=== PATIENT | female | born 1960 | race Hispanic/Latino ===

== ENCOUNTER → 2020-09-14 | Outpatient (CLI) | payer BC ==
[~2020-09-14] MED LIST: ACET-2743 PO; ALBU8.5H8 IH; APIX2.5T PO; CHOL500050 PO; CITA-107 PO; FEXO180T94 PO; FURO40TA5 PO; HYDR-4457 PO; LOSA100T58 PO; METF-526 PO; POTA10TA14 PO; SIMV10TA97 PO
== END | disposition home or self-care (01) ==
LOC: RAH 13:20
PROVIDERS: ATTEND Family Medicine
DX: R60.0 Localized edema (principal)
CPT/HCPCS: 93971

== ENCOUNTER → 2023-05-11 | Outpatient (CLI) | payer MEDICARE ==
[~2023-05-11] MED LIST changes: -LOSA100T58 PO; +LOSA100T59 PO
== END | disposition home or self-care (01) ==
LOC: SHCH 09:36
PROVIDERS: ATTEND Internal Medicine Cardiovascular Disease
DX: I73.9 Peripheral vascular disease, unspecified (principal); I87.2 Venous insufficiency (chronic) (peripheral)
CPT/HCPCS: 93925; 93970

== ENCOUNTER → 2023-07-20 | Outpatient (CLI) | payer MEDICARE | END | disposition home or self-care (01) | LOC: SHCH 09:57 | PROVIDERS: ATTEND Internal Medicine Cardiovascular Disease | DX: I35.8 Other nonrheumatic aortic valve disorders (principal); I51.89 Other ill-defined heart diseases; I35.0 Nonrheumatic aortic (valve) stenosis | CPT/HCPCS: 93306 ==

== ENCOUNTER → 2023-08-02 | Outpatient (CLI) | payer MEDICARE | END | disposition home or self-care (01) | LOC: RAH 07:38 | PROVIDERS: ATTEND Family Medicine | DX: M79.604 Pain in right leg (principal); W19.XXXD Unspecified fall, subsequent encounter | CPT/HCPCS: 93971 ==

== ENCOUNTER → 2024-05-14 | Outpatient (CLI) | payer MEDICARE ==
[~2024-05-14] MED LIST changes: -ACET-2743 PO; +ACET-66 PO; +AEC81 PO; +ALEN70TA80 PO; -APIX2.5T PO; +FLUT16H NASAL; +FLUT1BLS3 IH; +FURO20TA4 PO; -FURO40TA5 PO; -HYDR-4457 PO; -METF-526 PO; +MULT1CAP57 PO; +OMEP20TA20 PO; -POTA10TA14 PO
--- NOTE | 2024-05-16 08:19 | HMCSR ---
APPROVED REPORT Bilateral Lower Extremity Venous Study for Venous Competence., DVT. Indications i87.1, i87.2 Vein Imaging CFV (R): Normal flow, augmentation and compression. No evidence of DVT. 10.0mm 650ms of reflux. SFJ (R): Normal flow, augmentation and compression. No evidence of DVT. FEM (R): Normal flow, augmentation and compression. No evidence of DVT. POP (R): Normal flow, augmentation and compression. No evidence of DVT. DFV (R): Normal flow, augmentation and compression. No evidence of DVT. PTV (R): Normal flow, augmentation and compression. No evidence of DVT. Peroneals (R): Normal flow, augmentation and compression. No evidence of DVT. CFV (L): Normal flow, augmentation and compression. No evidence of DVT. 5.8mm 1089ms of reflux. SFJ (L): Normal flow, augmentation and compression. No evidence of DVT. FEM (L): Normal flow, augmentation and compression. No evidence of DVT. POP (L): Normal flow, augmentation and compression. No evidence of DVT. DFV (L): Normal flow, augmentation and compression. No evidence of DVT. PTV (L): Normal flow, augmentation and compression. No evidence of DVT. Peroneals (L): Normal flow, augmentation and compression. No evidence of DVT. Technologist Impression Deep veins of bilateral lower extremities appear patent and compressible without thrombus. LCFV venous reflux seen Superficial venous insufficiency seen in RGSV & LGSV RGSV Junction 5.6mm 550ms thigh 3.2mm 0.0ms (Tortuous) knee 3.0mm 2328ms (Tortuous) calf 2.4mm 0.0ms RSSV Prox 3.0mm 0.0ms Mid 2.5mm 0.0ms LGSV junction 7.5mm 0.0ms thigh 4.5mm 383ms (tortuous) knee 3.0mm 0.0ms (tortuous) calf 2.5mm 1456ms (tortuous) LSSV Prox 3.1mm 344ms Mid 3.1mm 0.0ms Technically difficult study Conclusion Severe deep venous reflux noted of left common femoral vein Severe superficial reflux in her bilateral greater saphenous veins and significantly tortuous vessels which may be indicative of prior ablative procedures performed Consider formal venography with IVUS if clinically indicated Conclusion Severe deep venous reflux noted of left common femoral vein Severe superficial reflux in her bilateral greater saphenous veins and significantly tortuous vessels which may be indicative of prior ablative procedures performed Consider formal venography with IVUS if clinically indicated
== END | disposition home or self-care (01) ==
LOC: SHCH 13:20
PROVIDERS: ATTEND Internal Medicine Cardiovascular Disease
DX: I87.2 Venous insufficiency (chronic) (peripheral) (principal); I87.1 Compression of vein
CPT/HCPCS: 93970

== ENCOUNTER 2025-03-15 17:03 | Emergency (ER) | payer MEDICARE ==
[~2025-03-15] VITALS: Ht 147.3 cm; Wt 95.7 kg
[2025-03-15 17:50] LABS: IMMATURE GRANULOCYTE ABSOLUTE 0.03 K/uL (0-1); NUCLEATED RED BLOOD CELLS 0.0 % (0.0-0.19); PLATELET COUNT (AUTO) 181 K/uL (130-400); RED BLOOD CELL COUNT(AUTO) 4.55 MIL/uL (4.00-5.50); RED CELL DISTRIBUTION WIDTH 12.5 % (11.0-15.5); WHITE BLOOD COUNT (AUTO) 9.3 K/uL (4.8-10.8)
[2025-03-15 18:02] LABS: CREATININE 0.7 mg/dL (0.5-1.0); GLOMERULAR FILTR. RATE CALC 95.0 mL/min (>90); GLUCOSE,RANDOM 121.0 mg/dL (70-105); SODIUM SERUM 142.0 mmol/L (136-145); UREA NITROGEN, BLOOD 22.0 mg/dL (7-18)
[2025-03-15 18:06] LABS: ASPARTATE AMINOTRANSFERASE 19.0 U/L (10-37); CREATINE KINASE, TOTAL 39.0 U/L (21-232); TOTAL PROTEIN, SERUM 7.5 g/dL (6.0-8.3)
[2025-03-15] MEDS: 0.9%NACL 1000ML 1,000 ML IV ONE (18:10)
[2025-03-15] MEDS ORDERED: IOHEXOL-350 75 ML VIAL IV ONE (18:51)
[2025-03-15 19:36] LABS: ADD UA MICROSCOPIC NO; APPEARANCE,URINE CLEAR (CLEAR); GLUCOSE, URINE (UA) NEGATIVE (NEGATIVE); LEUKOCYTE ESTERASE ,URINE NEGATIVE Leu/uL (NEGATIVE); NITRATE,URINE NEGATIVE (NEGATIVE); OCCULT BLOOD,URINE NEGATIVE (NEGATIVE)
--- NOTE | 2025-03-15 19:55 | HMCIMG ---
EXAM: CT Abdomen and Pelvis with IV contrast CLINICAL HISTORY: Patient presents with upper abdominal pain. TECHNIQUE: Axial computed tomography images of the abdomen and pelvis with intravenous contrast. CONTRAST: Omnipaque 350. COMPARISON: None provided. FINDINGS: LUNG BASES: The lung bases appear clear. No pleural effusions are seen. LIVER: Unremarkable. GALLBLADDER AND BILE DUCTS: The gallbladder appears within normal limits. No radioopaque gallstones are seen. No biliary ductal dilatation is evident. PANCREAS: Unremarkable. SPLEEN: Unremarkable. ADRENAL GLANDS: Unremarkable. KIDNEYS, URETERS, AND BLADDER: The kidneys appear within normal limits. There is no hydronephrosis or hydroureter. No urinary calculi are seen. STOMACH AND BOWEL: Mild constipation changes. No evidence of bowel obstruction. No evidence suggesting enteritis or colitis. APPENDIX: No evidence of acute appendicitis on CT examination. PERITONEUM: No free fluid. No free air. LYMPH NODES: No lymphadenopathy is evident. REPRODUCTIVE: The uterus is surgically absent. Unremarkable as visualised otherwise. VASCULATURE: No evidence of abdominal aortic aneurysm. BONES: Multilevel mild degenerative changes of the spine. No aggressive appearing osseous lesion. No acute osseous pathology is evident. ABDOMINAL WALL: Umbilical hernia with herniation of omental fat and ileal bowel loops. The hernial defect measures approximately 3.8 cm in maximum transverse dimension and 3 cm in maximum craniocaudal dimension. A focal fluid-filled prominence of the ileal bowel loops in the hernial sac measures a maximum calibre of 2 cm. Patchy fat stranding is seen within the neck of the hernial sac. IMPRESSION: Umbilical hernia containing omental fat and ileal bowel loops with focal fluid-filled prominence and patchy fat stranding in the hernial sac, without features of bowel obstruction. Mild constipation. Surgical absence of the uterus. /[place]
--- NOTE | 2025-03-15 20:27 | ERN ---
ED Note History of Present Illness Stated Complaint: ABD PAIN Chief Complaint: Abdominal Pain Time Seen by MD: 17:09 Time Seen by Midlevel: 17:09 Dictation: The patient is a 65-year-old female with a history of ventral hernia repair, appendectomy, gastric sleeve a year ago, hypertension who presents to the emergency department with complaints of epigastric abdominal pain, nausea and nonbloody vomiting, generalized weakness onset 2 hours prior to arrival. 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 Patient denies any headache. Reports some dizziness. Denies any fevers, denies any diarrhea, denies any constipation. Allergies: Coded Allergies: No Known Drug Allergies (Unverified Allergy, Unknown, 10/31/16) Home Meds Reported Medications Fluticasone/Umeclidin/Vilanter (Trelegy Ellipta 100-62.5-25) 100-62.5 Blst.w.dev, 1 EACH IH DAILY 12/25/23 Fexofenadine HCl (Mariaa Allergy) 180 Mg Tablet, 180 MG PO DAILY, TAB 12/25/23 Fluticasone Propionate (Flonase Nasal [place]) 50 Mcg/Actuation [place], 1 SPRAY NASAL DAILY, SPRAY 12/25/23 Acetaminophen (Tylenol) 500 Mg Tab, 500 MG PO AD PRN for PAIN, TAB 12/25/23 Aspirin (ASPIRIN 81 MG ECTAB) 81 Mg Ectab, 81 MG PO DAILY, TAB.EC 12/25/23 Omeprazole (Omeprazole) 20 Mg Tablet.dr, 20 MG PO DAILY, TAB 12/25/23 Alendronate Sodium (Alendronate Sodium) 70 Mg Tablet, 70 MG PO QWEEK, TAB 12/25/23 Furosemide (Furosemide) 20 Mg Tablet, 20 MG PO DAILY, TAB 12/25/23 Multivit-Min/Iron/Folic Acid/K (Bariatric Mv-Iron 45 mg Cap) 45 Mg Iron-800 Mcg-120 Mcg Capsule, 1 EACH PO DAILY, CAP 12/25/23 Citalopram Hydrobromide (Citalopram HBr) 20 Mg Tablet, 20 MG PO HS, TAB 09/14/17 Losartan Potassium (Losartan Potassium) 100 Mg Tablet, 100 MG PO AM, TAB 09/14/17 Albuterol Sulfate (Proair Hfa) 8.5 Gm Hfa.aer.ad, 1 PUFF IH Q4HPRN PRN for SHORTNESS OF BREATH/WHEEZING 11/01/16 Cholecalciferol (Vitamin D3) (Vitamin D3) 50,000 Unit Capsule, 66468 UNIT PO QWEEK, CAP 07/16/15 Simvastatin (Simvastatin) 10 Mg Tablet, 10 MG PO HS, TAB 07/16/15 Past Medical History Past Medical History: Constipation, COPD, Depression, GERD, High Cholesterol, Heart Disease, Hypertension Surgical History: Appendectomy, Hysterectomy, Tonsillectomy Surgical History Other: GASTRIC SLEEVE RN Note Reviewed/Agreed w/PFSH: Yes Review of System Dictation Constitutional: Negative for fever,chills, and weight loss Eyes: Negative for injury, pain,redness, and discharge ENT: Negative for injury,pain or swelling Cardiovascular: Negative for chest pain, palpitations, and edema Respiratory: Negative for shortness of breath, cough, and wheezing, Abdomen/GI: Negative for diarrhea, and constipation positive for abdominal pain, nausea, vomiting Back: Negative for injury and pain : Negative for injury, bleeding and discharge MS/Extremity: Negative for injury and deformity Skin: Negative for rash, and discoloration Neuro: Negative for headache, numbness, tingling, and seizure positive for weakness Psych: Negative for suicide ideation, homicidal ideation, and hallucinations Initial Vital Sign VS Vital Signs Date Time Temp Pulse Resp B/P (MAP) Pulse Ox O2 Delivery O2 Flow Rate FiO2 03/15/25 17:05 97.7 58 16 214/79 99 Room Air 0 03/15/25 17:55 21 Physical Exam Dictation Vital Signs reviewed General Appearance: Alert, oriented x 3, no acute distress, well developed, nourished. Head and Face: non-traumatic. Eyes: PERRL, pink conjunctivas, eyelid no trauma, anterior chamber with arcus senilis. Ears: Pinnas intact and no signs of trauma or erythema ear canals clear and no discharge TM no erythema Nose: No discharge, no bleeding. Oropharynx: Mouth normal, tongue pink. pharynx clear,no erythema, tonsils no exudates, no abscesses noted, mucous membrane moist Neck: Supple, non-tender, no thyromegaly, no masses, no JVD, no bruits Breast:Deferred Chest:No tenderness, no crepitus, no paradoxical movement, no retractions Lungs:Clear, well-ventilated, symmetric, no rales, no wheezing, no rhonchi, no stridor, good breath sounds bilaterally Heart: Regular rate, regular rhythm, no murmur, no gallops Vascular: no peripheral edema, Abdomen: Soft, positive bowel sounds, nondistended, no guarding, Epigastric tenderness, no rebound, no masses no hepatomegaly, no splenomegaly, no Boyd's sign, no hernias. Rectal: Deferred Genital: Deferred Neurological: Normal speech, motor function intact, sensory function intact , upper extremities equal in strength, lower extremities equal in strength, no facial droop, no slurred speech Musculoskeletal: Neck nontender, full range of motion, back nontender, full range of motion, Extremities: nontender, full range of motion Skin: Color pink, dry, no turgor, no rash, no lacerations, no abrasions, no contusions. Lymphatic: Deferred Results (Laboratory/Radiology) Laboratory/Radiology Laboratory Tests Test 03/15/25 17:38 03/15/25 19:26 White Blood Count 9.3 K/uL (4.8-10.8) Red Blood Count 4.55 MIL/uL (4.00-5.50) Hemoglobin 13.9 g/dL (12.0-16.0) Hematocrit 43.0 % (36-48) Mean Corpuscular Volume 94.5 fL (79-99) Mean Corpuscular Hemoglobin 30.5 pg (27.0-33.0) Mean Corpuscular Hemoglobin Concent 32.3 g/dL (32.0-36.0) Red Cell Distribution Width 12.5 % (11.0-15.5) Platelet Count 181 K/uL (130-400) Mean Platelet Volume 10.3 fL (7.5-10.5) Immature Granulocyte % (Auto) 0.3 % (0-1) Neutrophils (%) (Auto) 73.0 % (40.0-77.0) Lymphocytes (%) (Auto) 19.6 % (21.0-51.0) L Monocytes (%) (Auto) 5.3 % (3.0-13.0) Eosinophils (%) (Auto) 1.4 % (0.0-8.0) Basophils (%) (Auto) 0.4 % (0.0-5.0) Neutrophils # (Auto) 6.8 K/uL (1.8-7.7) Lymphocytes # (Auto) 1.8 K/uL (1.0-4.8) Monocytes # (Auto) 0.5 K/uL (0.1-1.0) Eosinophils # (Auto) 0.13 K/uL (0.00-0.70) Basophils # (Auto) 0.04 K/uL (0.00-0.20) Absolute Immature Granulocyte (auto 0.03 K/uL (0-1) Nucleated Red Blood Cells 0.0 % (0.0-0.19) Sodium Level 142 mmol/L (136-145) Potassium Level 4.0 mmol/L (3.5-5.1) Chloride Level 104 mmol/L (101-111) Carbon Dioxide Level 30 mmol/L (21-32) Blood Urea Nitrogen 22 mg/dL (7-18) H Creatinine 0.7 mg/dL (0.5-1.0) Glomerular Filtration Rate Calc 95 mL/min (>90) Random Glucose 121 mg/dL (70-105) H Total Calcium 8.9 mg/dL (8.5-10.1) Total Bilirubin 0.6 mg/dL (0.2-1.0) Direct Bilirubin 0.2 mg/dL (0.0-0.3) Aspartate Amino Transf (AST/SGOT) 19 U/L (10-37) Alanine Aminotransferase (ALT/SGPT) 23 U/L (12-78) Alkaline Phosphatase 78 U/L (50-136) Total Creatine Kinase 39 U/L (21-232) Troponin I High Sensitivity 6 ng/L (4-50) Total Protein 7.5 g/dL (6.0-8.3) Albumin 3.9 g/dL (3.5-5.0) Lipase 35 U/L (16-77) Urine Color YELLOW (YELLOW) Urine Appearance CLEAR (CLEAR) Urine pH 7.0 (5.0-8.0) Urine Specific Mallory 1.029 (1.001-1.031) Urine Protein NEGATIVE mg/dL (NEGATIVE) Urine Glucose (UA) NEGATIVE mg/dL (NEGATIVE) Urine Ketones 40 mg/dL (NEGATIVE) H Urine Occult Blood NEGATIVE (NEGATIVE) Urine Nitrate NEGATIVE (NEGATIVE) Urine Bilirubin NEGATIVE mg/dL (NEGATIVE) Urine Urobilinogen 0.2 mg/dL (0.2-1.0) Urine Leukocyte Esterase NEGATIVE Vicente/uL REASON: Abdominal Pain, upper ORDERING PHYSICIAN: TRAY HENSLEY PROCEDURE: ABD PEL W - CT ABDOMEN/PELVIS W/CONTRAST EXAM: CT Abdomen and Pelvis with IV contrast CLINICAL HISTORY: Patient presents with upper abdominal pain. TECHNIQUE: Axial computed tomography images of the abdomen and pelvis with intravenous contrast. CONTRAST: Omnipaque 350. COMPARISON: None provided. FINDINGS: LUNG BASES: The lung bases appear clear. No pleural effusions are seen. LIVER: Unremarkable. GALLBLADDER AND BILE DUCTS: The gallbladder appears within normal limits. No radioopaque gallstones are seen. No biliary ductal dilatation is evident. PANCREAS: Unremarkable. SPLEEN: Unremarkable. ADRENAL GLANDS: Unremarkable. KIDNEYS, URETERS, AND BLADDER: The kidneys appear within normal limits. There is no hydronephrosis or hydroureter. No urinary calculi are seen. STOMACH AND BOWEL: Mild constipation changes. No evidence of bowel obstruction. No evidence suggesting enteritis or colitis. APPENDIX: No evidence of acute appendicitis on CT examination. PERITONEUM: No free fluid. No free air. LYMPH NODES: No lymphadenopathy is evident. REPRODUCTIVE: The uterus is surgically absent. Unremarkable as visualised otherwise. VASCULATURE: No evidence of abdominal aortic aneurysm. BONES: Multilevel mild degenerative changes of the spine. No aggressive appearing osseous lesion. No acute osseous pathology is evident. ABDOMINAL WALL: Umbilical hernia with herniation of omental fat and ileal bowel loops. The hernial defect measures approximately 3.8 cm in maximum transverse dimension and 3 cm in maximum craniocaudal dimension. A focal fluid-filled prominence of the ileal bowel loops in the hernial sac measures a maximum calibre of 2 cm. Patchy fat stranding is seen within the neck of the hernial sac. IMPRESSION: Umbilical hernia containing omental fat and ileal bowel loops with focal fluid-filled prominence and patchy fat stranding in the hernial sac, without features of bowel obstruction. Mild constipation. Surgical absence of the uterus. /[place] [facility] Reviewed?: Yes EKG: (+) rhythm (Sinus rhythm) EKG Comment: Date:03/15/2025 Time:1817 Ventricular rate:60 WI interval:185 QRS duration:107 QT/QTc:453/451 EKG interpretation: Sinus rhythm Reviewed by ED Attending no STEMI ED Course ED Course Orders Procedure Category Date Status Time Cbc With Differential LAB 03/15/25 Complete 17:30 Troponin I High LAB 03/15/25 Complete Sensitivity 17:30 Urinalysis Profile LAB 03/15/25 Complete 17:30 12 Lead Ekg Tracing- EKG 03/15/25 Logged Technical 17:30 0.9%Nacl 1000ml (Ns PHA 03/15/25 In Process 1000ml) 17:30 Morphine 4mg Syg PHA 03/15/25 Complete (Morphine 4mg Syg) 17:30 Ondansetron 4mg Inj PHA 03/15/25 Complete (Zofran 4mg Inj) 17:30 Pantoprazole 40mg Inj PHA 03/15/25 Complete (Protonix 40mg Inj 17:30 Creatine Kinase, Total LAB 03/15/25 Complete 17:30 Lipase LAB 03/15/25 Complete 17:30 Basic Metabolic Panel LAB 03/15/25 Complete 17:30 Hepatic Function Panel LAB 03/15/25 Complete 17:30 Hydralazine 20mg Inj PHA 03/15/25 Complete (Apresoline 20mg In 18:00 Ct Abdomen/Pelvis CT 03/15/25 Resulted W/Contrast 18:17 Iohexol (Omnipaque) PHA 03/15/25 Complete 18:51 Ketorolac PHA 03/15/25 In Process Tromethamine 15mg/Ml 20:30 Current Medications Medications (Trade) Dose Ordered Sig/Aurea Route PRN Reason Start Time Stop Time Status Last Admin Dose Admin Hydralazine HCl (APRESOLine 20MG INJ) 10 mg ONCE ONCE IV 03/15/25 18:00 03/15/25 18:01 DC 03/15/25 18:18 Iohexol (Omnipaque) 75 ml STK-MED ONCE IV 03/15/25 18:51 03/15/25 18:52 DC Ketorolac Tromethamine (toRADol) 15 mg ONCE ONCE IV 03/15/25 20:30 03/15/25 20:31 Morphine Sulfate (morPHINE 4MG SYG) 4 mg ONCE ONCE IVP 03/15/25 17:30 03/15/25 17:38 DC 03/15/25 18:11 Ondansetron HCl (zoFRAN 4MG INJ) 4 mg ONCE ONCE IVP 03/15/25 17:30 03/15/25 17:38 DC 03/15/25 18:10 Pantoprazole Sodium (PROTonix 40MG INJ) 40 mg ONCE ONCE IVP 03/15/25 17:30 03/15/25 17:38 DC 03/15/25 18:10 Sodium Chloride 1,000 ml @ 125 mls/hr ONCE ONCE IV 03/15/25 17:30 03/16/25 01:29 03/15/25 18:10 Vital Signs Date Time Temp Pulse Resp B/P (MAP) Pulse Ox O2 Delivery O2 Flow Rate FiO2 03/15/25 19:28 98.1 73 20 173/61 100 Room Air* 0 21 03/15/25 18:18 59 208/76 03/15/25 17:55 98.2 59 14 208/76 99 Room Air* 0 21 03/15/25 17:05 97.7 58 16 214/79 99 Room Air 0 Medical Decision Making MDM The patient is a 65-year-old female with a history of ventral hernia repair, appendectomy, gastric sleeve a year ago, hypertension who presents to the emergency department with complaints of epigastric abdominal pain, nausea and nonbloody vomiting, generalized weakness onset 2 hours prior to arrival. 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 Patient denies any headache. Reports some dizziness. Denies any fevers, denies any diarrhea, denies any constipation. CBC showed no leukocytosis, no anemia, chemistry showed no electrolyte imbalance, normal renal function, negative lipase, negative troponin, urinalysis unremarkable. CT abdomen pelvis showed mild constipation, umbilical hernia with no signs of bowel obstruction. Labs and imaging discussed with the patient. Patient reports she feels a lot better. She has no periumbilical pain her pain is mainly epigastric. Patient at this time agrees to be discharged and follow up with PCP. Blood pressure slightly elevated. Patient otherwise neurol ogically intact. Blood pressure improved after medications. Differential diagnosis: Gastritis, gastroenteritis, bowel obstruction, dehydration, ACS Need for hospitalization: Patient does not meet criteria for hospitalization. There are no social concerns with this patient. DX & DISP Disposition: Discharge Departure Impression: Primary Impression: Gastritis Additional Impressions: Constipation, Abdominal pain, Umbilical hernia Condition: Stable Scripts Lactulose (Lactulose) 10 Gram/15 Ml Solution 30 ML PO BID for constipation, #500 ML 0 Refills Prov: TRAY HENSLEYP 03/15/25 Pantoprazole Sodium (Protonix) 40 Mg Tablet.dr 1 TAB PO DAILY for 30 Days, #30 TAB 0 Refills Prov: TRAY HENSLEY MEDICAL ECONOMICS CONSULTANT 03/15/25 Additional Instructions: Your labs were unremarkable. Your CT scan showed you have mild constipation in an umbilical hernia. Please follow up with your primary doctor in 1-2 days. Take your medications as prescribed. Avoid eating any spicy foods, or foods that can exacerbate your symptoms. Avoid laying down right after eating. If anything worsens please return to ER. FOLLOW-UP WITH PRIMARY CARE PROVIDER IN 1 TO 2 DAYS. TAKE MEDICATIONS DIRECTED HERE IN THE EMERGENCY ROOM. OKAY TO CONTINUE HOME MEDICATIONS UNLESS OTHERWISE DISCUSSED DURING YOUR VISIT IN THE EMERGENCY ROOM TODAY. RETURN TO YOUR NEAREST EMERGENCY ROOM IF SYMPTOMS WORSEN OR IF THERE IS NO IMPROVEMENT. CALL 911 IF YOU NEED IMMEDIATE ASSISTANCE. TAKE TYLENOL [id number] NEEDED AND IF NO CONTRAINDICATIONS ARE PRESENT. INCREASE ORAL HYDRATION. A WOUND CULTURE OR URINE CULTURE WAS ORDERED HERE IN THE EMERGENCY ROOM DEPARTMENT PLEASE FOLLOW-UP WITH PRIMARY CARE PROVIDER AND ADVISE THEM TO GET REPEAT PORTS FROM OUR FACILITY. IF YOU HAD ANY ROSANGELA WRAP/SPLINTS THAT WERE APPLIED HERE, PLEASE DO NOT REMOVE THEM UNTIL YOU SEE YOUR PRIMARY CARE OR SPECIALTY. Referrals: TARSHA AC MD (PCP) Time of Disposition: 20:32 I have reviewed the case, and I agree with, Diagnosis and Plan TRAY HENSLEY MEDICAL ECONOMICS CONSULTANT Mar 15, 2025 20:27
[2025-03-15] MEDS ORDERED: LACT-441 PO (20:35)
[2025-03-15] MEDS ORDERED: PANT40TA PO (20:35)
[2025-03-15 21:09] VITALS: BP 162/68; PULSE 70; RESP 18; TEMP 98.3; O2SAT 99
--- NOTE | 2025-03-16 07:41 | EKG ---
[facility] Test Date: 2025-03-15 Test Time: 18:17:03 Pat Name: BERNICE JACKSON Department: ED Room: Gender: F Ccnp: [id number] : 1960 Requested By: TRAY HENSLEY Order Number: [id number] Reading MD: Son Fuentes Measurements Intervals [place] Rate: 60 P: 66 [place]: 185 QRS: 1 QRSD: 107 T: 34 QT: 453 QTc: 451 Interpretive Statements Sinus rhythm Ischemic st abnormality left precordial leads Compared to ECG 12/25/2023 11:43:27 No significant changes Electronically Signed On 03-16-2025 20:07:22 FINISHING MANAGER by Son Fuentes Please click the below link to view image of tracing.
[2025-03-16] MEDS ORDERED: LACT10SO85 PO (17:33)
== END 2025-03-15 21:11 | disposition home or self-care (01) ==
LOC: EDH 17:03
DX: K29.70 Gastritis, unspecified, without bleeding (principal); K42.9 Umbilical hernia without obstruction or gangrene; K59.00 Constipation, unspecified; E78.00 Pure hypercholesterolemia, unspecified; F32.A Depression, unspecified; I11.9 Hypertensive heart disease without heart failure; J44.9 Chronic obstructive pulmonary disease, unspecified; Z79.82 Long term (current) use of aspirin; Z79.899 Other long term (current) drug therapy; Z90.49 Acquired absence of other specified parts of digestive tract; Z90.710 Acquired absence of both cervix and uterus
CPT/HCPCS: 99285; 74177; 96374; 96375; 96361; 82550; 80076; 84484; 80048; 83690; 85025; 81003; 36415; 93005; J1885; J7030; J0360; J2405; J2270; J2470; Q9967; 96365; 96366; 96368

== ENCOUNTER 2025-03-16 14:33 | Emergency (ER) | payer MEDICARE ==
[~2025-03-16] VITALS: Ht 147.3 cm; Wt 95.3 kg
[~2025-03-16 14:33] MED LIST changes: +LACT-441 PO; +PANT40TA PO
--- NOTE | 2025-03-16 15:02 | ERN ---
General Chief Complaint: Abdominal Pain Stated Complaint: N/V, UMBILICAL HERNIA Time Seen by MD: 14:37 Source: patient History of Present Illness Initial Comments Patient is a 65-year-old female coming in complaining of abdominal discomfort. Patient states that she was evaluated yesterday and was told she has a an umbilical hernia. She did not have a bowel obstruction. She states that she has not followed up with the PCP yet but has been having abdominal discomfort. Allergies: Coded Allergies: No Known Drug Allergies (Unverified Allergy, Unknown, 10/31/16) Home Meds Active Scripts Lactulose (Lactulose) 10 Gram/15 Ml Solution, 30 ML PO BID for constipation, #500 ML 0 Refills Prov:TRAY HENSLEY [employer] DIRECT[employer] 03/15/25 Pantoprazole Sodium (Protonix) 40 Mg Tablet.dr, 1 TAB PO DAILY for 30 Days, #30 TAB 0 Refills Prov:TRAY HENSLEY [employer] DIRECTOR 03/15/25 Reported Medications Fluticasone/Umeclidin/Vilanter (Trelegy Ellipta 100-62.5-25) 100-62.5 Blst.w.dev, 1 EACH IH DAILY 12/25/23 Fexofenadine HCl (Mariaa Allergy) 180 Mg Tablet, 180 MG PO DAILY, TAB 12/25/23 Fluticasone Propionate (Flonase Nasal Holly) 50 Mcg/Actuation Holly, 1 SPRAY NASAL DAILY, SPRAY 12/25/23 Acetaminophen (Tylenol) 500 Mg Tab, 500 MG PO AD PRN for PAIN, TAB 12/25/23 Aspirin (ASPIRIN 81 MG ECTAB) 81 Mg Ectab, 81 MG PO DAILY, TAB.EC 12/25/23 Omeprazole (Omeprazole) 20 Mg Tablet.dr, 20 MG PO DAILY, TAB 12/25/23 Alendronate Sodium (Alendronate Sodium) 70 Mg Tablet, 70 MG PO QWEEK, TAB 12/25/23 Furosemide (Furosemide) 20 Mg Tablet, 20 MG PO DAILY, TAB 12/25/23 Multivit-Min/Iron/Folic Acid/K (Bariatric Mv-Iron 45 mg Cap) 45 Mg Iron-800 Mcg- 120 Mcg Capsule, 1 EACH PO DAILY, CAP 12/25/23 Citalopram Hydrobromide (Citalopram HBr) 20 Mg Tablet, 20 MG PO HS, TAB 09/14/17 Losartan Potassium (Losartan Potassium) 100 Mg Tablet, 100 MG PO AM, TAB 09/14/17 Albuterol Sulfate (Proair Hfa) 8.5 Gm Hfa.aer.ad, 1 PUFF IH Q4HPRN PRN for SHORTNESS OF BREATH/WHEEZING 11/01/16 Cholecalciferol (Vitamin D3) (Vitamin D3) 50,000 Unit Capsule, 36143 UNIT PO QWEEK, CAP 07/16/15 Simvastatin (Simvastatin) 10 Mg Tablet, 10 MG PO HS, TAB 07/16/15 Past Medical History Past Medical History: Constipation, COPD, Depression, GERD, High Cholesterol, Heart Disease, Hypertension Past Surgical History: Appendectomy, Hysterectomy, Tonsillectomy, Bariatric Surgery Surgical History Other: GASTRIC SLEEVE ROS Dictation CONSTITUTIONAL: No chills, no fever, no weakness, no diaphoresis, no malaise. HEAD/FACE: No signs of trauma. EENT: No eye pain, no blurred vision, no tearing, no double vision, no ear pain, no ear discharge, no nose pain, no nasal congestion, no throat pain, no throat swelling, no mouth pain. RESPIRATORY: No cough, no orthopnea, no SOB, no stridor, no wheezing. CARDIOVASCULAR: No chest pain, no edema, no palpitations, no syncope. GASTROINTESTINAL/ABDOMINAL: abdominal pain, constipation, no diarrhea, no nausea, no vomiting. GENITOURINARY: No abnormal discharge, no dysuria, no frequent urination, no hematuria. No complaints of pain in the genitals. MUSCULOSKELETAL: No back pain, no gout, no joint pain, no joint swelling, no muscle pain, no muscle stiffness, no neck pain. INTEGUMENTARY: No change in color, no change in hair/nails, no dryness, no lesion, no lumps, no rash. NEUROLOGICAL/PSYCH: No anxiety, not depressed, no emotional problem, no headache, no numbness, no pre-existing deficit, no history of seizures, no tremors, no weakness. HEMATOLOGIC/LYMPHATIC: Not anemic, no history of blood clots, no apparent bleeding, no bruising, glands not swollen. All Systems Negative, Except as Noted. Physical Exam Physical Exam Dictation VITAL SIGNS: Reviewed. GENERAL APPEARANCE: Alert, oriented x3, no acute distress, obese. HEAD AND FACE: Non-traumatic. EYES: PERRL, pink conjunctivas, eyelid no trauma, anterior chamber clear. EARS: Pinnas intact and no signs of trauma or erythema. Ear canals clear and no discharge. TMs no erythema. NOSE: No discharge, no bleeding. OROPHARYNX: Mouth normal, teeth no caries, tongue pink. Pharynx clear, no erythema. Tonsils no exudates, no abscesses noted. Mucous membrane moist. NECK: Supple, non-tender, no thyromegaly, no masses, no JVD, no bruits. BREAST: Deferred. CHEST: No tenderness, no crepitus, no paradoxical movement, no retractions. LUNGS: Clear, well-ventilated, symmetric, no rales, no wheezing, no rhonchi, no stridor, good breath sounds bilaterally. HEART: Regular rate, regular rhythm, no murmur, no gallops. VASCULAR: No peripheral edema. ABDOMEN: Soft, positive bowel sounds, distended, no guarding, tender, no rebound, no masses no hepatomegaly, no splenomegaly, no Boyd's sign, no hernias. RECTAL: Deferred. GENITAL: Deferred. NEUROLOGICAL: Normal speech, gross motor function intact, gross sensory function intact. MUSCULOSKELETAL: Neck nontender, full range of motion, back nontender, full range of motion. EXTREMITIES: Nontender, full range of motion. SKIN: Color pink, dry, no turgor, no rash, no lacerations, no abrasions, no contusions. LYMPHATICS: Deferred. Results Laboratory and Microbiology Labs Reviewed?: Yes MDM MDM: Differential diagnosis:, hernia, constipation, Rationale: Tests considered and ordered secondary to shared decision making include: Previous outside records reviewed: Old ER visits. Risk of complication and/or morbidity or mortality of patient management: None Medications-Per medication reconciliation Need for hospitalization: Patient does not meet criteria for hospitalization. Need for emergency major/minor surgery: No Patient is a 65-year-old female coming in complaining of abdominal discomfort. She states that she was here last night a CT disclose the ventral hernia with constipation. On physical exam the ventral hernia still present abdominal binder was placed ventral hernia reduced patient states he feels better we will be discharged in stable condition. I did advise her appropriate follow up with PCP I will be prescribing medication for constipation relief. ED Course Vital Signs Date Time Temp Pulse Resp B/P (MAP) Pulse Ox O2 Delivery O2 Flow Rate FiO2 12/15/25 14:35 98.2 66 16 187/85 100 Room Air 0 DX & DISP Disposition: Discharge Departure Impression: Primary Impression: Umbilical hernia Additional Impression: Constipation Condition: Stable Scripts Lactulose (Lactulose) 10 Gram/15 Ml Solution 30 ML PO BID for constipation, #500 ML 0 Refills Prov: POLLY MUÑIZ MD 03/16/25 Additional Instructions: FOLLOW-UP WITH PRIMARY CARE PROVIDER IN 1 TO 2 DAYS. TAKE MEDICATIONS DIRECTED HERE IN THE EMERGENCY ROOM. OKAY TO CONTINUE HOME MEDICATIONS UNLESS OTHERWISE DISCUSSED DURING YOUR VISIT IN THE EMERGENCY ROOM TODAY. RETURN TO YOUR NEAREST EMERGENCY ROOM IF SYMPTOMS WORSEN OR IF THERE IS NO IMPROVEMENT. CALL 911 IF YOU NEED IMMEDIATE ASSISTANCE. TAKE TYLENOL [id number] NEEDED AND IF NO CONTRAINDICATIONS ARE PRESENT. INCREASE ORAL HYDRATION. A WOUND CULTURE OR URINE CULTURE WAS ORDERED HERE IN THE EMERGENCY ROOM DEPARTMENT PLEASE FOLLOW-UP WITH PRIMARY CARE PROVIDER AND ADVISE THEM TO GET REPORTS FROM OUR FACILITY. IF YOU HAD ANY ROSANGELA WRAP/SPLINTS THAT WERE APPLIED HERE, PLEASE DO NOT REMOVE THEM UNTIL YOU SEE YOUR PRIMARY CARE OR SPECIALTY. Referrals: Referrals: TARSHA AC MD (PCP) SHIRLENE FISH MD Time of Disposition: 17:32 POLLY MUÑIZ MD Mar 16, 2025 15:02
[2025-03-16] MEDS ORDERED: LACT10SO85 PO (17:33)
[2025-03-16] MEDS: MAGNESIUM CITRATE 296 ML SOLUTION PO SCH (18:16)
[2025-03-16 18:46] VITALS: BP 145/83; PULSE 72; RESP 18; TEMP 97.9; O2SAT 99
== END 2025-03-16 18:48 | disposition home or self-care (01) ==
LOC: EDH 14:33
DX: K42.9 Umbilical hernia without obstruction or gangrene (principal); K59.00 Constipation, unspecified; I11.9 Hypertensive heart disease without heart failure; E78.00 Pure hypercholesterolemia, unspecified; F32.A Depression, unspecified; J44.9 Chronic obstructive pulmonary disease, unspecified; K21.9 Gastro-esophageal reflux disease without esophagitis; Z79.82 Long term (current) use of aspirin; Z79.899 Other long term (current) drug therapy; Z90.49 Acquired absence of other specified parts of digestive tract; Z90.710 Acquired absence of both cervix and uterus; Z90.89 Acquired absence of other organs; Z98.84 Bariatric surgery status
CPT/HCPCS: 99284